=== PATIENT | male | born 1970 | race African-American/Black ===

== ENCOUNTER 2019-07-30 07:15 | Emergency (ER) | payer MEDICAID ==
[~2019-07-30] VITALS: Ht 188 cm; Wt 63.0 kg
[2019-07-30] MEDS ORDERED: KETOROLAC 30MG/ML VIAL IV STA (07:28)
[2019-07-30] MEDS ORDERED: SODIUM CHLORIDE 0.9% 1,000 ML IV ONE (07:28)
[2019-07-30] MEDS ORDERED: FAMOTIDINE 20MG/2ML VIAL IV STA (07:28)
[2019-07-30] MEDS ORDERED: MAGNESIUM/ALUMINUM HYDROXIDE/SIMETHICONE 30ML UDC PO STA (07:28)
[2019-07-30 07:59] LABS: HEMATOCRIT. 32.6 % (42.0-52.0); MEAN CORPUSCULAR HEMOGLOBIN 30.5 pg (28.0-32.0); MEAN CORPUSCULAR VOLUME 90.2 fL (80.0-94.0); MEAN PLATELET VOLUME 6.6 fl (7.4-10.4); PLATELET 399 x1000/uL (130-400); RED BLOOD CELL COUNT 3.62 mill/uL (4.7-6.1); RED CELL DISTRIBUTION WIDTH 15.5 % (11.6-14.6)
[2019-07-30 08:05] LABS: CHLORIDE 101 mEq/L (98-107)
[2019-07-30 08:06] LABS: PROTHROMBIN TIME 11.3 sec (9.6-11.0)
[2019-07-30 08:08] LABS: ETHANOL BLOOD < 10 mg/dL
[2019-07-30 08:33] LABS: CLARITY URINE CLEAR (CLEAR); COLOR URINE YELLOW (YELLOW); KETONES URINE NEGATIVE (NEGATIVE); LEUKOCYTE ESTERASE URINE NEGATIVE (NEGATIVE); NITRITE URINE NEGATIVE (NEGATIVE); OCCULT BLOOD URINE NEGATIVE (NEGATIVE); PH URINE 5.5 (4.5-8.0); PROTEIN URINE TRACE (NEGATIVE); SPECIFIC GRAVITY URINE 1.024 (1.005-1.030); UROBILINOGEN URINE 0.2 E.U./dL (0.2-1.0)
[2019-07-30 08:34] LABS: PLATELET ESTIMATE NORMAL
[2019-07-30 08:46] LABS: *AMPHETAMINES SCREEN URINE NEGATIVE (NEGATIVE); *BARBITURATES SCREEN URINE NEGATIVE (NEGATIVE); *BENZODIAZEPINES SCREEN URINE NEGATIVE (NEGATIVE); *COCAINE SCREEN URINE NEGATIVE (NEGATIVE)
[2019-07-30 08:47] LABS: CANNABINOID URINE SCREEN NEGATIVE (NEGATIVE); METHADONE URINE SCREEN NEGATIVE (NEGATIVE); PHENCYCLIDINE URINE SCREEN NEGATIVE (NEGATIVE)
[2019-07-30 09:50] VITALS: BP 110/80
[2019-08-02 17:51] LABS: OPIATES URINE SCREEN NEGATIVE (NEGATIVE)
[2019-08-09] MEDS ORDERED: ALBU90AE IH (18:02)
[2019-08-09] MEDS ORDERED: FAMO20TA8 MT (18:02)
[2019-08-09] MEDS ORDERED: CLOT15CR2 TP (18:02)
[2019-08-09] MEDS ORDERED: AZIT250T12 PO (18:02)
[2019-08-09] MEDS ORDERED: IBUP-2029 MT (18:02)
[2019-08-09] MEDS ORDERED: NYST15OI TP (18:02)
[2019-08-09] MEDS ORDERED: PHEN1SUP15 RC (18:02)
[2019-08-09] MEDS ORDERED: RITO100T MT (18:02)
[2019-08-09] MEDS ORDERED: LOPE2CAP MT (18:02)
[2019-08-09] MEDS ORDERED: HYDR30CR80 TP (18:02)
[2019-08-09] MEDS ORDERED: EMTR1TAB11 MT (18:02)
[2019-08-09] MEDS ORDERED: SULF-288 MT (18:02)
== END 2019-07-30 10:04 | disposition home or self-care (01) ==
LOC: ER 07:15
DX: R10.13 Epigastric pain (principal); R10.12 Left upper quadrant pain; R07.9 Chest pain, unspecified; R11.2 Nausea with vomiting, unspecified; I10 Essential (primary) hypertension; E11.9 Type 2 diabetes mellitus without complications; Z98.890 Other specified postprocedural states
CPT/HCPCS: 36415; 71045; 80053; 80305; 80320; 81003; 83690; 84484; 85025; 85610; 93005; 96361; 96374; 96375; 99285; J1885; J3490; J7030; G0480

== ENCOUNTER 2019-08-06 23:43 | Emergency (ER) | payer MEDICAID ==
[~2019-08-06] VITALS: Ht 177.8 cm; Wt 80.0 kg
[2019-08-07 02:15] LABS: HEMATOCRIT. 29.4 % (42.0-52.0); HEMOGLOBIN. 10.1 g/dL (14.0-18.0); MEAN CORPUSCULAR HEMOGLOBIN 30.2 pg (28.0-32.0); MEAN CORPUSCULAR VOLUME 87.8 fL (80.0-94.0); MEAN PLATELET VOLUME 7.8 fl (7.4-10.4); PLATELET 289 x1000/uL (130-400); RED BLOOD CELL COUNT 3.35 mill/uL (4.7-6.1); RED CELL DISTRIBUTION WIDTH 15.9 % (11.6-14.6)
[2019-08-07 02:21] LABS: CHLORIDE 100 mEq/L (98-107)
[2019-08-07 02:26] LABS: CLARITY URINE CLOUDY (CLEAR); COLOR URINE DARK YELLOW (YELLOW); KETONES URINE NEGATIVE (NEGATIVE); LEUKOCYTE ESTERASE URINE NEGATIVE (NEGATIVE); NITRITE URINE NEGATIVE (NEGATIVE); OCCULT BLOOD URINE NEGATIVE (NEGATIVE); PH URINE 6.5 (4.5-8.0); PROTEIN URINE 1+ (NEGATIVE); SPECIFIC GRAVITY URINE 1.036 (1.005-1.030)
[2019-08-07 02:35] LABS: *COCAINE SCREEN URINE NEGATIVE (NEGATIVE); CANNABINOID URINE SCREEN NEGATIVE (NEGATIVE); METHADONE URINE SCREEN NEGATIVE (NEGATIVE); OPIATES URINE SCREEN NEGATIVE (NEGATIVE); PHENCYCLIDINE URINE SCREEN NEGATIVE (NEGATIVE)
[2019-08-07 02:36] LABS: *AMPHETAMINES SCREEN URINE NEGATIVE (NEGATIVE); *BARBITURATES SCREEN URINE NEGATIVE (NEGATIVE); *BENZODIAZEPINES SCREEN URINE NEGATIVE (NEGATIVE)
[2019-08-07] MEDS ORDERED: IPRATROPIUM BROMIDE (0.02%) 0.5MG/2.5ML NEB HHN SCH (05:19)
[2019-08-07] MEDS ORDERED: ACETAMINOPHEN 325MG TABLET PO SCH (05:19)
[2019-08-07] MEDS ORDERED: ALBUTEROL (0.083%) 2.5MG/3ML NEB HHN SCH (05:19)
[2019-08-07 06:29] VITALS: BP 134/71
[2019-08-07 07:01] LABS: PLATELET ESTIMATE NORMAL
[2019-08-09] MEDS ORDERED: ALBU90AE IH (18:02)
[2019-08-09] MEDS ORDERED: FAMO20TA8 MT (18:02)
[2019-08-09] MEDS ORDERED: NYST15OI TP (18:02)
[2019-08-09] MEDS ORDERED: IBUP-2029 MT (18:02)
[2019-08-09] MEDS ORDERED: SULF-288 MT (18:02)
[2019-08-09] MEDS ORDERED: LOPE2CAP MT (18:02)
[2019-08-09] MEDS ORDERED: HYDR30CR80 TP (18:02)
[2019-08-09] MEDS ORDERED: AZIT250T12 PO (18:02)
[2019-08-09] MEDS ORDERED: PHEN1SUP15 RC (18:02)
[2019-08-09] MEDS ORDERED: RITO100T MT (18:02)
[2019-08-09] MEDS ORDERED: EMTR1TAB11 MT (18:02)
[2019-08-09] MEDS ORDERED: CLOT15CR2 TP (18:02)
[2019-08-10 10:06] LABS: HIV 1 ABS Positive (Negative); HIV 2 ABS Negative (Negative); HIV SCREEN 4G Reactive (Non Reactive); INTERPRETATION HIV-1 Positive (.)
== END 2019-08-07 06:29 | disposition home or self-care (01) ==
LOC: ER 23:52
DX: J18.9 Pneumonia, unspecified organism (principal); B37.9 Candidiasis, unspecified; R10.13 Epigastric pain; Z79.899 Other long term (current) drug therapy
CPT/HCPCS: 36415; 71045; 80053; 80305; 81003; 83690; 83880; 84484; 85025; 86701; 86702; 86703; 87070; 87389; 87430; 87804; 93005; 94640; 99285; Z7610